=== PATIENT | male | born 1985 | race Caucasian/White ===

== ENCOUNTER 2017-11-20 09:50 | Emergency (ER) | payer MEDICAID ==
[~2017-11-20] VITALS: Ht 185.4 cm; Wt 77.3 kg
[2017-11-20 09:56] VITALS: BP 133/71; TEMP 98.1
[2017-11-20 10:54] VITALS: PULSE 69
== END 2017-11-20 10:54 | disposition home or self-care (01) ==
LOC: COL.ER 09:50
DX: S62.317A Displaced fracture of base of fifth metacarpal bone, left hand, initial encounter for closed fracture (principal); F17.210 Nicotine dependence, cigarettes, uncomplicated; W22.8XXA Striking against or struck by other objects, initial encounter
CPT/HCPCS: Q4021

== ENCOUNTER 2018-10-01 10:08 | Emergency (ER) | payer SELFPAY ==
[~2018-10-01] VITALS: Ht 185.4 cm; Wt 72.7 kg
[2018-10-01 10:10] VITALS: BP 131/77; TEMP 98.2
[2018-10-01 11:58] VITALS: PULSE 71
== END 2018-10-01 11:59 | disposition home or self-care (01) ==
LOC: COL.ER 10:08
DX: T15.91XA Foreign body on external eye, part unspecified, right eye, initial encounter (principal)

== ENCOUNTER 2021-05-06 13:19 | Emergency (ER) | payer OTHER ==
[~2021-05-06] VITALS: Ht 185.4 cm; Wt 84.1 kg
[2021-05-06 13:38] VITALS: TEMP 98.1
[2021-05-06 14:12] LABS: BASO % 0.6 % (0.0-2.0); EOS # 0.2 K/mm3 (0.0-0.7); GRAN # 2.9 K/mm3 (1.4-6.5); GRAN % 58.4 % (42.2-75.2); HEMATOCRIT 44.6 % (42.0-52.0); HEMOGLOBIN 15.4 g/dl (13.5-18.0); LYMPH # 1.3 K/mm3 (1.2-3.4); LYMPH % 26.1 % (20.0-51.0); MEAN CELL VOLUME 90 fl (80.0-100.0); MEAN CORPUSCULAR HEMOGLOBIN 31 pg (27-31); MEAN CORPUSCULAR HGB CONC 35 g/dl (33.0-37.0); MEAN PLATELET VOLUME 9.4 fl (7.4-10.4); MONO # 0.6 K/mm3 (0.1-0.6); MONO % 11.7 % (1.7-9.3); PLATELET COUNT 176 K/mm3 (130-400); RED BLOOD COUNT 4.94 M/mm3 (4.20-5.60); REDCELL DISTRIBUTION WIDTH-CV 12.1 % (11.5-14.5)
[2021-05-06 14:33] LABS: ALBUMIN 4.1 gm/dL (3.5-5.0); C-REACTIVE PROTEIN 0.06 mg/dL (0.00-0.50); CALCIUM 8.8 mg/dL (8.4-10.2); CREATININE, serum 0.87 mg/dL (0.72-1.25); POTASSIUM 4.5 mmol/L (3.5-4.5); TOTAL PROTEIN 7.3 gm/dL (6.2-8.1)
[2021-05-06 15:06] LABS: COLLECTION METHOD CLEAN CATCH
[2021-05-06 15:12] LABS: MUCOUS Present (NOT PRESENT); PH 5 (5-8); SQUAMOUS EPITHELIAL None Seen /hpf (0-10); URINE APPEARANCE Clear (CLEAR/HAZY); URINE BACTERIA None Seen (NONE SEEN); URINE BILIRUBIN Negative (NEGATIVE); URINE BLOOD Negative (NEGATIVE); URINE COLOR Yellow (YELLOW); URINE GLUCOSE Negative (NEGATIVE); URINE KETONE Negative (NEGATIVE); URINE LEUKOCYTE ESTERASE Negative (NEGATIVE); URINE NITRATE Negative (NEGATIVE); URINE PROTEIN(semi-quant) Negative (NEGATIVE); URINE RBC 0-2 /hpf (0-2); URINE UROBILINOGEN Negative (NEGATIVE)
[2021-05-06 16:03] VITALS: BP 144/98; PULSE 73
== END 2021-05-06 16:03 | disposition home or self-care (01) ==
LOC: COL.ER 13:19
PROVIDERS: Nurse Practitioner Primary Care
DX: R10.11 Right upper quadrant pain (principal)
CPT/HCPCS: J1885; J7030

== ENCOUNTER → 2021-05-12 | Outpatient (CLI) | payer OTHER | LOC: COL.RAD 09:17 | DX: R10.11 Right upper quadrant pain (principal) ==